=== PATIENT | female | born 1975 | race Caucasian/White ===

== ENCOUNTER 2016-09-19 06:59 | Day surgery (SDC) | payer BC, SELFPAY ==
[2016-09-17 15:59] LABS: BASOPHILS 0.5 %; BASOPHILS ABSOLUTE 0.06 10/3/uL (0.0-0.16); EOSINOPHILS 1.7 %; EOSINOPHILS ABSOLUTE 0.19 10/3/uL (0.0-0.53); HEMATOCRIT 43.1 % (36.0-48.0); HEMOGLOBIN 14.5 g/dL (12.0-16.0); IMMATURE GRANULOCYTES 0.3 %; IMMATURE GRANULOCYTES ABSOLUTE 0.03 10/3/uL (0.0-0.11); LYMPHOCYTES 31.8 %; LYMPHOCYTES ABSOLUTE 3.57 10/3/uL (0.67-4.30); MANUAL DIFF NO %; MEAN CORPUS HGB CONC 33.6 g/dL (32.0-36.0); MEAN CORPUSCULAR VOLUME 92.3 fL (80-100); MEAN PLATELET VOLUME 12.2 fL (9.2-13.0); MONOCYTES 5.4 %; MONOCYTES ABSOLUTE 0.61 10/3/uL (0.21-1.20); NEUTROPHILS 60.3 %; NEUTROPHILS ABSOLUTE 6.77 10/3/uL (2.02-8.40); PLATELET COUNT 287 10/3/uL (150-400); RBC DISTRIBUTION WIDTH 14.7 % (12.0-16.0); RED CELL COUNT 4.67 10/6/uL (4.0-5.6); WHITE BLOOD CELLS 11.2 10/3/uL (4.5-10.5)
[2016-09-17 16:18] LABS: ALBUMIN 3.9 G/DL (3.5-5.0); ALKALINE PHOSPHATASE 125 U/L (45-117); BUN (BLOOD UREA NITROGEN) 4 MG/DL (6-23); CHLORIDE, SERUM 108 MMOL/L (96-112); CO2 (CARBON DIOXIDE) 23 MMOL/L (24-34); CREATININE 0.71 MG/DL (0.55-1.02); GFR AFRICAN AMERICAN 124 ML/MIN (>=60); GFR NON AFRICAN AMERICAN 107 ML/MIN (>=60); GLOBULIN 3.9 G/DL (2.5-4.1); GLUCOSE, SERUM 88 MG/DL (60-99); POTASSIUM, SERUM 3.8 MMOL/L (3.5-5.3); SGOT(AST) 30 U/L (5-40); SGPT(ALT) 64 U/L (5-65); SODIUM, SERUM 138 MMOL/L (135-148); TOTAL BILIRUBIN 0.5 MG/DL (0-1.2); TOTAL PROTEIN 7.8 G/DL (6.0-8.5)
--- NOTE | ~2016-09-19 | OP ---
Record Of Operation [facility] [address] [place]. [address] NAME: RUBY KAUR : 79 STATUS : [facility]#: [id number] AGE: 41 ADM/REG DATE : 09/19/16 MR#: [id number] REPORT SERV DATE: 09/19/16 DICTATED BY: SHYAM SANCHEZ III DATE: 09/19/16 REPORT STATUS : Draft TRANSCRIBED BY: MOE DATE: 09/19/16 DATE OF PROCEDURE: 09/19/2016 PREOPERATIVE DIAGNOSIS: Nonpalpable mass in the right breast, papilloma on core needle biopsy, concern for malignancy. POSTOPERATIVE DIAGNOSIS: Nonpalpable mass in the right breast, papilloma on core needle biopsy, concern for malignancy. PROCEDURE: Right breast lumpectomy with stereotactic wire localization. ANESTHESIA: General with intubation. COMPLICATIONS: None. ESTIMATED BLOOD LOSS: Less than 5 mL. SPECIMENS: Lumpectomy specimen from right breast. DRAINS: None. LAP AND SPONGE COUNT: Correct x3. BRIEF HISTORY: This 41-year-old female presented with a nonpalpable mass located in the right breast. Ultrasound-directed core needle biopsy showed it to be a papilloma. It was felt that excisional biopsy with lumpectomy was indicated in order to rule out possibility of malignancy and for therapeutic purposes. On this procedure, the risks, benefits, and alternatives, including but not limited to the risk for bleeding, infection, pain, swelling, scarring, deformity to the breast, seroma formation, hematoma formation, false localization, possible need for further surgery, and unforeseen complications including deep venous thrombosis, pulmonary embolus, myocardial infarction, stroke, pneumonia, and were explained to the patient prior to surgery. Her questions were answered. She understood the risks and agreed to surgery as planned. DESCRIPTION OF PROCEDURE: After being properly identified and after discussing risks of surgery with the patient and family again in the preoperative area, and after stereotactic wire localization of the lesion per Radiology, the patient was taken to the operating room and placed in supine position on the operating room table. General anesthesia was administered, and she was intubated without difficulty. The right breast was prepped and draped sterilely in the usual fashion, taking care not to dislodge the guidewire from the skin. After an appropriate "time-out" per JCAHO standards, a curvilinear incision was made along the 10 to 11 to 12 o'clock position of the edge of the areola complex of the right breast, at the exit site of the guidewire from the skin. An elliptical portion of skin was excised with the specimen where the guidewire exited the skin. Using sharp dissection, we dissected through the subcutaneous tissue. Hemostasis was controlled with cautery. Using sharp dissection, a core of breast tissue centered around the guidewire was resected. This Record Of Operation [facility] [address] [place]. [address] NAME: RUBY KAUR : 79 STATUS : [facility] PAT#: [id number] AGE: 41 ADM/REG DATE : 09/19/16 MR#: [id number] REPORT SERV DATE: 09/19/16 DICTATED BY: SHYAM SANCHEZ III DATE: 09/19/16 REPORT STATUS : Draft TRANSCRIBED BY: MOE DATE: 09/19/16 was resected deep into the breast beyond the guidewire. The entire block of tissue consisting of the skin, lumpectomy specimen, and guidewire, with the wire in the center of the specimen, was thus removed. It was oriented with sutures. The specimen sent to specimen pathology and interpreted as containing the lesion of concern and the previously placed marking clip. The area was irrigated copiously with saline. Hemostasis was assured. The subcutaneous tissue was closed with interrupted 3-0 chromic sutures. The skin was closed with running subcuticular 4-0 Monocryl stitch. The incision was injected with 0.5% Marcaine. Dressings were applied. Anesthesia was reversed. The patient was taken to the recovery room in stable condition. She tolerated the procedure well. Her family was informed results of surgery. The patient was discharged when stable and comfortable. Her family was advised that she should keep her wound clean and dry for 48 hours, and she should not drive for two to three days after surgery or use narcotics, and that she should resume her usual medications. She has been asked to return in two weeks for followup or sooner if any fever, chills, wound drainage, or other problems prior to that time. She was given a prescription for Percocet 7.5 one t.i.d., #12, as needed for pain, which she was advised not to use while driving. RHJ/MODL Shyam Sanchez III, M.D. / [id number] CC: Nicolas Marie III, JASON ANTHONY
--- NOTE | ~2016-09-19 | PREOPHP ---
PreOp History and Physical [address] [place]. [address] NAME: RUBY KAUR : 79 [place]US : [facility] [place] PAT#: [id number] AGE: 41 ADM/REG DATE : 09/19/16 MR#: [id number] REPORT SERV DATE: 09/19/16 DICTATED BY: SHYAM SANCHEZ III DATE: 09/04/16 REPORT STATUS : Draft TRANSCRIBED BY: MODL DATE: 09/04/16 HISTORY OF PRESENT ILLNESS: This is a 41-year-old female who comes to the operating room for right breast lumpectomy with wire localization. The patient recently had routine mammogram. This mammogram showed an abnormal lesion of concern at the 10 o'clock position in the right breast. 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 The patient comes now for lumpectomy for removal of this papilloma to rule out the possibility of an occult malignancy. The patient has had no breast pain or tenderness or nipple discharge. She has a family history for breast cancer in that a mother and sister had cancer of the breast. PAST MEDICAL HISTORY: 1. Hypertension. 2. Obesity. 3. Hyperlipidemia. 4. Depression. PAST SURGICAL HISTORY: Includes tubal ligation and hysterectomy. FAMILY HISTORY: Positive for diabetes, heart disease, and breast cancer. SOCIAL HISTORY: The patient has history of heavy tobacco abuse. No history of alcohol use. MEDICATIONS: Amlodipine, atorvastatin, calcium, buspirone, diclofenac, tramadol. ALLERGIES: NONE. REVIEW OF SYSTEMS: The patient's 14-point review of systems is otherwise unremarkable. PHYSICAL EXAMINATION: GENERAL: Obese female, in no acute distress. She is alert and oriented x3. VITAL SIGNS: Blood pressure 125/79, pulse 99, temp 98.2. HEENT: Unremarkable. Cranial nerves 2 through 12 are normal. LUNGS: Clear. CARDIAC: Normal. ABDOMEN: Soft, nontender. Both breasts remarkable for fibroglandular changes with no dominant masses or nodules. Both nipples are normal without discharge. Both axilla normal with no adenopathy. The patient was examined in both supine and sitting positions. LABORATORY DATA: Recent bilateral mammogram showed an 18 mm circumscribed isodense mass at the 9 to 10 o'clock position in the right breast. BI-RADS 4. Biopsy shows this to be a focal intraductal papilloma with ductal ectasia. ASSESSMENT: PreOp History and Physical [address] [address] NAME: RUBY KAUR : 79 STATUS : [facility] [place] PAT#: [id number] AGE: 41 ADM/REG DATE : 09/19/16 MR#: [id number] REPORT SERV DATE: 09/19/16 DICTATED BY: SHYAM SANCHEZ III DATE: 09/04/16 REPORT STATUS : Draft TRANSCRIBED BY: MOE DATE: 09/04/16 1. 41-year-old female, with nonpalpable papilloma of the right breast. 2. Obesity. 3. Family history for breast cancer. 4. Hypertension. 5. Depression. 6. Hyperlipidemia. PLAN: The patient comes to the operating room now for right breast lumpectomy with ultrasound wire localization of the lesion. This is primarily to rule out the possibility of associated malignancy or development of malignancy or symptomatic mass in the future. The option of nonoperative management has been offered to the patient but declined. The procedure risks, benefits, and alternatives, including not limited to the risk for bleeding, infection, pain, swelling, scarring or deformity to the breast, seroma formation, hematoma formation, false localization, possible need for further surgery, and unforeseen complications including deep venous thrombosis, pulmonary embolus, myocardial infarction, stroke, pneumonia, and , have been explained to the patient prior to the surgery. Her questions have been answered. She understands the risks and agrees to the surgery as planned. JIM/MOE Shyam Sanchez III, M.D. / [id number]
[~2016-09-19 06:59] MED LIST: BUSPAR15 M1 PO; LIPITOR10 PO; NORV5 PO; ULTRAM50 PO; VOLT50 PO
== END 2016-09-19 17:04 | disposition home or self-care (01) ==
LOC: SDC 06:59
PROVIDERS: Surgery
PROC: 0H9T0ZX Drainage of Right Breast, Open Approach, Diagnostic (ICD-10-PCS; 2016-09-19)
PROC: 0HBT0ZZ Excision of Right Breast, Open Approach (ICD-10-PCS; principal; 2016-09-19 10:15)
DX: D24.1 Benign neoplasm of right breast (principal); I10 Essential (primary) hypertension; E66.01 Morbid (severe) obesity due to excess calories; F41.9 Anxiety disorder, unspecified; K21.9 Gastro-esophageal reflux disease without esophagitis; M19.90 Unspecified osteoarthritis, unspecified site; E78.00 Pure hypercholesterolemia, unspecified; F17.210 Nicotine dependence, cigarettes, uncomplicated; Z90.710 Acquired absence of both cervix and uterus; Z98.51 Tubal ligation status; Z79.899 Other long term (current) drug therapy; Z91.041 Radiographic dye allergy status
CPT/HCPCS: 71020; 76098; 80053; 85025; 88307; 93005; A9270-GY; J0690; J1885; J2250; J2405; J3010